=== PATIENT | female | born 1950 | race African-American/Black ===

== ENCOUNTER → 2021-05-22 | Outpatient (CLI) | payer BC ==
--- NOTE | 2021-05-22 13:43 | RAD ---
INDICATION: Reason: ARF / Spl. Instructions: / History: COMPARISON: None. TECHNIQUE: Grayscale and color ultrasound images obtained of the bilateral kidneys and bladder. FINDINGS: Right Kidney: 122 mm. No hydronephrosis. Left Kidney: 123 mm. No hydronephrosis. Cystic lesion measuring 52 mm. Only partially visualized seco ndary to overlying structures obscuring. Bladder: 18 cc within prevoid without significant post void residual. IMPRESSION: * No hydronephrosis bilaterally. * Left renal cystic lesion partially visualized. Definite complex component is not seen but only par tially visualized on this exam. * Renal cortex appears mildly echogenic. Nonspecific but medical renal disease is not excluded given this finding. Electronically signed by: Alexander Sherwood MD (05/22/2021 10:28 AM) [id number]
== END ==
LOC: US 09:57
PROVIDERS: ATTEND Nurse Practitioner Adult Health
DX: N17.9 Acute kidney failure, unspecified (principal)
CPT/HCPCS: 76770